=== PATIENT | male | born 1975 | race African-American/Black ===

== ENCOUNTER 2017-01-14 14:59 | Emergency (ER) | payer OTHER ==
[~2017-01-14] VITALS: Ht 162.6 cm; Wt 117.9 kg
[~2017-01-14 14:59] MED LIST: ELIMITE60 GM TOP; EYE MED; LORTAB 10 MG-3473 ML PO; MEDROL PO; PRIMACORT TOP; VISTARIL PO; [UNRECOGNIZED DRUG - OTHER] OS
== END 2017-01-14 18:29 | disposition left against medical advice (07) ==
LOC: CED 14:59
DX: Z53.21 Procedure and treatment not carried out due to patient leaving prior to being seen by health care provider (principal)